=== PATIENT | female | born 1965 | race Caucasian/White ===

== ENCOUNTER 2016-04-19 08:18 | Day surgery (SDC) | payer OTHER ==
[~2016-04-19] VITALS: Ht 177.8 cm; Wt 81.8 kg
[~2016-04-19 08:18] MED LIST: BACL10TA PO; CITA20TA9 PO; CeFAZolin 2 GM/DEXTROSE 50 ML IV ONE; DEXAMETHASONE SOD PHOS 4 MG/ML VIAL IVP ONE; FentaNYL CITRATE-PF 100 MCG/2 ML VIAL IVP ONE; HYD50 PO; IBUP-2070 PO; KETOROLAC TROMETHAMINE 60 MG/2 ML VIAL IM ONE; LIDOCAINE HCL/PF 2% 5 ML VIAL IM ONE; MIDAZOLAM HCL 2 MG/2 ML VIAL IVP ONE; MULT-248 PO; OMEG1CAP82 PO; OMEP20 PO; ONDANSETRON HCL 4 MG/2 ML VIAL IVP ONE; PROPOFOL 1% 20 ML VIAL IVP ONE; RINGERS SOLUTION,LACTATED 1,000 ML IV ONE; TRAZ150 PO; VIT1TABL83 PO
[2016-04-19] MEDS ORDERED: RINGERS SOLUTION,LACTATED 1,000 ML IV ONE (08:30)
[2016-04-19] MEDS ORDERED: GUM MASTIC/STORAX/MSAL/ALCOHOL LIQUID 0.67 ML VIAL TP ONE (08:47)
[2016-04-19] MEDS ORDERED: LIDOCAINE HCL 2%/EPI 1:200,000/PF 10 ML VIAL ONE (08:47)
[2016-04-19] MEDS ORDERED: BUPIVACAINE HCL/PF 0.5% 30 ML VIAL ONE (08:47)
[2016-04-19] MEDS ORDERED: IBUPROFEN 600 MG TABLET PO PRN (10:15)
[2016-04-19] MEDS ORDERED: ACETAMINOPHEN 500 MG TABLET PO PRN (10:15)
[2016-04-19] MEDS ORDERED: FentaNYL CITRATE-PF 100 MCG/2 ML VIAL IVP PRN (10:30)
[2016-04-19] MEDS ORDERED: OXYGEN THERAPY IH SCH (10:30)
[2016-04-19] MEDS ORDERED: MEPERIDINE-PF 25 MG/ML SYRINGE IVP PRN (10:30)
[2016-04-19] MEDS ORDERED: HYDROmorphone 2 MG/ML SYRINGE IVP PRN (10:30)
[2016-04-19] MEDS ORDERED: IBUPROFEN 600 MG TABLET ONE (11:26)
== END 2016-04-19 12:05 | disposition home or self-care (01) ==
LOC: SURGERY 08:18
PROVIDERS: ATTEND Surgery
DX: R22.9 Localized swelling, mass and lump, unspecified (principal); F41.9 Anxiety disorder, unspecified; F32.9 Major depressive disorder, single episode, unspecified; K21.9 Gastro-esophageal reflux disease without esophagitis; F17.210 Nicotine dependence, cigarettes, uncomplicated; E66.3 Overweight; Z98.51 Tubal ligation status; Z98.890 Other specified postprocedural states; Z90.710 Acquired absence of both cervix and uterus; Z72.89 Other problems related to lifestyle; Z85.828 Personal history of other malignant neoplasm of skin; Z87.19 Personal history of other diseases of the digestive system
CPT/HCPCS: 24071; 88305; J0690; J1100; J1885; J2250; J2405; J2704; J3010; J3490 ×3; J7120